=== PATIENT | male | born 1995 | race Caucasian/White ===

== ENCOUNTER 2024-09-06 08:41 | Emergency (ER) | payer BC ==
[2024-09-06] MEDS: Diphtheria,Pertussis(Acell),Tetanus Vaccine 0.5 ML Syringe IM ONE (09:05)
== END 2024-09-06 09:41 | disposition home or self-care (01) ==
LOC: JD.ED 08:41
DX: S67.196A Crushing injury of right little finger, initial encounter (principal); S61.306A Unspecified open wound of right little finger with damage to nail, initial encounter; Z23 Encounter for immunization; W23.0XXA Caught, crushed, jammed, or pinched between moving objects, initial encounter; Y92.89 Other specified places as the place of occurrence of the external cause; Y99.0 Civilian activity done for income or pay
CPT/HCPCS: 73140-26-F9; 73140-F9; 90471; 90715; 99283; 99283-25